=== PATIENT | male | born 1975 | race African-American/Black ===

== ENCOUNTER 2017-06-07 19:47 | Emergency (ER) | payer OTHER ==
[~2017-06-07] VITALS: Ht 167.6 cm; Wt 100.0 kg
[2017-06-07] MEDS ORDERED: KETOROLAC TROMETHAMINE 60 MG/2 ML VIAL IM ONE (20:30)
[2017-06-07] MEDS ORDERED: ACETAMINOPHEN 500 MG TABLET PO ONE (20:30)
[2017-06-07 22:58] VITALS: BP 127/86
== END 2017-06-07 23:19 | disposition home or self-care (01) ==
LOC: EMS 19:49
DX: M25.561 Pain in right knee (principal); Z96.651 Presence of right artificial knee joint; W19.XXXA Unspecified fall, initial encounter; Y93.89 Activity, other specified; Y92.89 Other specified places as the place of occurrence of the external cause; Y99.8 Other external cause status
CPT/HCPCS: 73564; 96372; 99284; J1885

== ENCOUNTER → 2018-05-17 | Outpatient (CLI) | payer MEDICAID, OTHER ==
[~2018-05-17] MED LIST: LIDOCAINE HCL/PF 1% 30 ML VIAL ONE; LISI1TAB9 PO
== END | disposition home or self-care (01) ==
LOC: RADMN 09:11
PROVIDERS: ATTEND Orthopaedic Surgery
DX: Z47.1 Aftercare following joint replacement surgery (principal); M25.461 Effusion, right knee; Z96.653 Presence of artificial knee joint, bilateral
CPT/HCPCS: 75989; 87070; 87205; J3490

== ENCOUNTER 2018-12-18 20:12 | Emergency (ER) | payer MEDICAID, OTHER ==
[~2018-12-18] VITALS: Ht 167.6 cm; Wt 111.4 kg
[~2018-12-18 20:12] MED LIST changes: -LIDOCAINE HCL/PF 1% 30 ML VIAL ONE
[2018-12-18 23:55] VITALS: BP 154/89
== END 2018-12-18 23:58 | disposition home or self-care (01) ==
LOC: EMS 20:14
DX: M25.461 Effusion, right knee (principal); I10 Essential (primary) hypertension; Z96.651 Presence of right artificial knee joint; Z79.899 Other long term (current) drug therapy